=== PATIENT | male | born 1955 | race Caucasian/White ===

== ENCOUNTER 2018-10-08 21:18 | Emergency (ER) | payer OTHER ==
[~2018-10-08] VITALS: Ht 165.1 cm; Wt 69.0 kg
== END 2018-10-08 23:47 | disposition home or self-care (01) ==
LOC: ER 21:18
DX: S20.211A Contusion of right front wall of thorax, initial encounter (principal); D17.39 Benign lipomatous neoplasm of skin and subcutaneous tissue of other sites; W01.118A Fall on same level from slipping, tripping and stumbling with subsequent striking against other sharp object, initial encounter
CPT/HCPCS: 71101; 99283-25; A9270

== ENCOUNTER 2019-03-10 08:15 | Day surgery (SDC) | payer OTHER ==
[~2019-03-10] VITALS: Ht 160 cm; Wt 66.4 kg
[~2019-03-10 08:15] MED LIST: ASCO500 PO; FISH OIL 1,0001 EAC1 PO; VARE1 PO
--- NOTE | 2019-03-10 09:23 | NUR ---
Ambulatory in Day Surgery History, Chart, Medications and Allergies reviewed before start of procedure.Patient confirms NPO status and agrees with scheduled surgery.pateint not cleaned out. tap water enema given times 2 to stool clear
--- NOTE | 2019-03-10 09:59 | NUR ---
03/10/19 0959 Chirag Shi PATIENT DETERMINED TO BE ASA APPROPRIATE FOR PROPOFOL SEDATION PRIOR TO START OF PROCEDURE BY 3-LEAD EKG REVIEWED WITH PHYSICIAN PRIOR TO START OF PROCEDURE.Patient to ENDO 1History, Chart, Medications and Allergies reviewed before start of procedure.MONITOR INTACT WITH CONTINUOUS PULSE OXIMETRY AND INTERMITTENT BP.O2 VIA N/C INTACT THROUGHOUT SEDATION/PROCEDURE.
--- NOTE | 2019-03-10 11:16 | NUR ---
Patient up to Ambulate independently. Gait steady. Discharge instructions reviewed with patient. Patient verbalizes understanding. Copy given to patient to take home. Patient States Post-Procedure ride home has been arranged.
== END 2019-03-10 11:00 | disposition home or self-care (01) ==
LOC: ORSCMMR 08:15 → ORD 09:00 → ORSCMMR 11:00
PROVIDERS: Internal Medicine Gastroenterology
PROC: 0DBK8ZX Excision of Ascending Colon, Via Natural or Artificial Opening Endoscopic, Diagnostic (ICD-10-PCS; principal; 2019-03-10 09:00)
PROC: 0DBH8ZX Excision of Cecum, Via Natural or Artificial Opening Endoscopic, Diagnostic (ICD-10-PCS; principal; 2019-03-10 09:00)
DX: K62.89 Other specified diseases of anus and rectum (principal); D12.0 Benign neoplasm of cecum; D12.2 Benign neoplasm of ascending colon; K64.4 Residual hemorrhoidal skin tags; J44.9 Chronic obstructive pulmonary disease, unspecified; F17.210 Nicotine dependence, cigarettes, uncomplicated
CPT/HCPCS: 88305; J2704; J7120